=== PATIENT | male | born 1970 | race Caucasian/White ===

== ENCOUNTER 2017-01-07 07:10 | Emergency (ER) | payer MEDICAID ==
[~2017-01-07] VITALS: Ht 170.2 cm; Wt 89.3 kg
[~2017-01-07 07:10] MED LIST: CIPR7.5D4 RIGHT EAR
[2017-01-07 07:11] VITALS: Ht 170.2 cm; Wt 89.3 kg
[2017-01-07] MEDS ORDERED: SLF10OP15 BOTH EYES (07:46)
--- NOTE | 2017-01-07 07:54 | ERD ---
ER Documentation Chief Complaint Date/Time DATE: 01/07/17 TIME: 07:48 Chief Complaint il eenate redness x 2 days HPI This 46-year-old male who presents the emergency department today complaining of redness in both of his eyes for the past 2 days. States he has used tetrahydrozoline in his eyes. 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 Denies any eye pain, headache, blurred vision, vision changes, itching or purulent drainage ROS All systems reviewed and are negative except as per history of present illness. Medications Home Meds Active Scripts Sulfacetamide Sodium* (Sulfacetamide Sodium*) 10%-15 Ml Opht Drops, 1 DROP BOTH EYES Q2H for 7 Days, EA Prov:CALLIE MATHEWS PA-C 01/07/17 Ciprofloxacin Hcl/Dexameth (Ciprodex Otic Suspension) 7.5 Ml Drops.susp, 4 DROP RIGHT EAR BID for 7 Days, EA Prov:ALY GUPTA PA-C 10/24/15 Reported Medications [None] No Conflict Check 06/19/12 Allergies Allergies: Coded Allergies: No Known Drug Allergies (Verified Allergy, Unknown, 01/07/17) PMhx/Soc Medical and Surgical Hx: pt denies Medical Hx, pt denies Surgical Hx History of Surgery: No Anesthesia Reaction: No Hx Neurological Disorder: No Hx Respiratory Disorders: No Hx Cardiac Disorders: No Hx Psychiatric Problems: No Hx Miscellaneous Medical Probl: No Hx Alcohol Use: No Hx Substance Use: No Hx Tobacco Use: No Physical Exam Vitals Vital Signs Date Time Temp Pulse Resp B/P Pulse Ox O2 Delivery O2 Flow Rate FiO2 01/07/17 07:11 98.4 80 18 135/81 99 Physical Exam Const: No acute distress Head: Atraumatic Eyes: Bilateral conjunctival erythema and scleral erythema with evidence of pterygium bilaterally. No purulent drainage. ENT: Normal External Ears, Nose and Mouth. Neck: Full range of motion..~ No meningismus. Resp: Clear to auscultation bilaterally Cardio: Regular rate and rhythm, no murmurs Skin: No petechiae or rashes Neur: Awake and alert Psych: Normal Mood and Affect Procedures/MDM This is a 38-year-old male who presents to the emergency department today for bilateral eye redness for the past 2 days. 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 I have explained this to him. Patient denied any pain however I did obtain a visual acuity Right eye 20/13 Left eye 20/20 Bilateral 2013 I also check patient's ocular pressure with a Alfonzo-Pen Right eye pressures were between 16 and 18 on repeated attempts Left eye pressures were between 14 and 18 on repeated attempts Patient symptoms at the site consistent with bilateral eye redness possibly due to viral versus bacterial versus allergic conjunctivitis. Low suspicion for foreign body however patient was given a prescription for sulfacetamide. Low suspicion for hyphema, globe rupture, acute narrow angle glaucoma, orbital or preseptal cellulitis. Patient is afebrile and otherwise well-appearing. Patient was given a referral information for [facility]. At this time the patient is stable for discharge and outpatient management. Patient should follow up with their PCP in the next 1-2 days. They may return to the emergency department sooner for any persistent or worsening of symptoms. Patient understood and agreed with the plan. Discussed the patient with Jenny and he is in agreement with the plan. Departure Diagnosis: Primary Impression: Eye problem Condition: Fair Patient Instructions: Understanding Red Eye: Causes, Pterygium Referrals: [facility]) Usted se malone hecho un examen mdico de control que le indica que no est en edgardo condicin que requiera tratamiento urgente en el Departamento de Emergencia. Un estudio ms profundo y el tratamiento de garcia condicin pueden esperar sin ningn riesgo hasta que usted sea atendida/o en el consultorio de garcia mdico o edgardo cl jie. Es responsabilidad suya arreglar egdardo jaida para el seguimiento del giuliana. MANEJO DE CONDICIONES NO URGENTES EN EL FUTURO 1) Si usted tiene un mdico de atencin primaria: Usted debera llamar a garcia mdico de atencin primaria antes de venir al departamento de emergencia. Despus de las horas de consultorio, garcia doctor o garcia asociado/a est disponible por telfono. El mdico o enfermero de orin en el servicio telefnico puede asesorarle por nima medio para atender el problema, o giuliana contrario se puede programar edgardo jaida. 2) Si usted no tiene un mdico de atencin primaria: Llame al mdico o clnica de referencia que aparece abajo sachin las horas de consultorio para hacer edgardo jaida para que le vean. CLINICAS: [facility] [phone] [facility] [phone] [facility] [phone] [place] [address] [phone] [facility] [phone] [address] [facility]. [phone] [facility] Hours: Mon - Fri 9:00 AM - 5:00 PM Additional Instructions: Llame al doctor MAANA y antonino edgardo JAIDA PARA DENTRO DE 1-2 FLOEWRS.Dgale a la secretaria que nosotros le instruimos hacer esta jaida.Avise o llame si garcia condicin se empeora antes de la jaida. Regresa aqui si peor o no mejor. Use protective eyewear and sunglasses Use medication as prescribed Make an appointment with [facility] CALLIE MATHEWS PA-C Jan 07, 2017 07:54
== END 2017-01-07 07:50 | disposition home or self-care (01) ==
LOC: FTE 07:10
DX: H57.8 Other specified disorders of eye and adnexa (principal)
CPT/HCPCS: 99283

== ENCOUNTER 2018-03-12 19:09 | Emergency (ER) | END 2018-03-12 23:42 | disposition home or self-care (01) ==

== ENCOUNTER 2018-11-21 15:52 | Emergency (ER) | payer MEDICAID ==
[~2018-11-21] VITALS: Ht 167.6 cm; Wt 78.2 kg
[~2018-11-21 15:52] MED LIST changes: -CIPR7.5D4 RIGHT EAR; +IBUP-1542 PO
[2018-11-21 15:56] VITALS: Ht 167.6 cm; Wt 78.2 kg
[2018-11-21 20:33] VITALS: BP 135/88; PULSE 66; RESP 16
--- NOTE | 2018-11-22 13:08 | ERD ---
ER Documentation Chief Complaint Chief Complaint BUMP ON BACK X 1 DAY HPI Patient is a Citizen Of [place] speaking 48 year old male who presents to the ED with complaints of a bump on his left lateral trunk. 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 He reports a dull associated pain, worse when twisting to the left or left. Denies any known trauma. Denies an itchiness, rash or any other symptoms. Denies any history of same. ROS All systems reviewed and are negative except as per history of present illness. Medications Home Meds Active Scripts Ibuprofen* (Motrin*) 600 Mg Tab, 600 MG PO Q6H PRN for PAIN AND OR ELEVATED TEM P, #30 TAB Prov:JOHN VOGEL MD 03/12/18 Allergies Allergies: Coded Allergies: No Known Drug Allergies (Verified Allergy, Unknown, 03/12/18) PMhx/Soc Medical and Surgical Hx: pt denies Medical Hx, pt denies Surgical Hx History of Surgery: No Anesthesia Reaction: No Hx Neurological Disorder: No Hx Respiratory Disorders: No Hx Cardiac Disorders: No Hx Psychiatric Problems: No Hx Miscellaneous Medical Probl: No Hx Alcohol Use: No Hx Substance Use: No Hx Tobacco Use: No Smoking Status: Never smoker FmHx Family History: No diabetes Physical Exam Vitals Vital Signs Date Temp Pulse Resp B/P (MAP) Pulse Ox O2 O2 Flow FiO2 Time Delivery Rate 11/21/18 98.5 66 16 135/88 96 Room Air 20:33 (104) 11/21/18 98.0 71 18 167/97 98 15:56 (120) Physical Exam Const: No acute distress Head: Atraumatic Neck: Full range of motion. No meningismus. Skin: No petechiae or rashes Back: + Palpable 3 cm round nodule to left lateral mid trunk, nonmobile Ext: No cyanosis, or edema Neur: Awake and alert Psych: Normal Mood and Affect Procedures/MDM EMERGENT DIAGNOSTIC WORKUP Imaging as interpreted by the radiologist: PROCEDURE: Ultrasound of the soft tissues of the left lateral chest/abdomen CLINICAL INDICATION: Palpable mass TECHNIQUE: Real time imaging of the left lateral chest and abdomen was performed in the area of the palpable abnormality. COMPARISON: None FINDINGS: Real time imaging of the left lateral chest and abdomen was performed in the are a of the palpable abnormality. No cystic or solid masses are identified. No fluid collections are identified. IMPRESSION: No sonographic abnormalities are identified in the area of the palpable abnormality in the left lateral chest and abdomen. If there is continued clinical concern for abnormality, a CT or MRI could be performed. RPTAT:AAJJ Physician Rubén Date Time Electronically viewed and signed by Freddy Cunningham Physician on 11/21/2018 19:53 MEDICAL DECISION MAKING: Patient is an otherwise healthy 48 year old male who presents to the ED with complaints of a bump to his left lateral trunk. Physical exam is consistent with a lipoma. Ultrasound was inconclusive, further imaging was not obtained. Discussed with patient this is a likely a benign nodule that does not require emergent workup. I recommended he see his primary care physician for a referral to general surgery if lipoma gets any bigger or causes more pain. Strict return precaution given. DISPOSITION PLAN: We discussed follow up with the patient's primary care doctor within 24 to 48 hours. A list of community clinics have been referred to those who have not yet established care with a PCP. Patient counseled regarding my diagnostic impression and care plan. Prior to discharge all questions answered. Pt agrees with treatment plan and understands strict return precautions. Precautionary instructions provided including instructions to return to the ER if not improving or for any worsening or changing symptoms or concerns. Prior to discharge, patients vital signs have been reviewed. Patient's blood pressure was elevated (>120/80) but appears stable without evidence of hypertension emergency or urgency. The patient was counseled about the risks of hypertension and urged to pursue outpatient monitoring and therapy within a week with their primary care physician SPECIALIST FOLLOW UP RECOMMENDED: General Surgery Departure Diagnosis: Primary Impression: Lipoma Condition: Stable Patient Instructions: Lipoma Referrals: COMMUNITY CLINICS YOU HAVE RECEIVED A MEDICAL SCREENING EXAM AND THE RESULTS INDICATE THAT YOU DO NOT HAVE A CONDITION THAT REQUIRES URGENT TREATMENT IN THE EMERGENCY DEPARTMENT. FURTHER EVALUATION AND TREATMENT OF YOUR CONDITION CAN WAIT UNTIL YOU ARE SEEN IN YOUR DOCTORS OFFICE WITHIN THE NEXT 1-2 DAYS. IT IS YOUR RESPONSIBILITY TO MAKE AN APPOINTMENT FOR FOLOW-UP CARE. IF YOU HAVE A PRIMARY DOCTOR --you should call your primary doctor and schedule an appointment IF YOU DO NOT HAVE A PRIMARY DOCTOR YOU CAN CALL OUR PHYSICIAN REFERRAL HOTLINE AT IF YOU CAN NOT AFFORD TO SEE A PHYSICIAN YOU CAN CHOSE FROM THE FOLLOWING [facility] [address] [facility] [address] [facility]. [facility] [phone] [facility] [address] [facility] [facility] [address] [facility] [facility]. [address] Additional Instructions: thank you very much for allowing us to participate in your care. Your health and safety is our top priority at [facility]. Call your primary care doctor TOMORROW for an appointment during the next 2-4 days and bring all the information and medications prescribed. If the symptoms get worse and your provider is unavailable, return to the Emergency Department immediately. ADAMARIS CATSILLO PA-C Nov 22, 2018 13:02
== END 2018-11-21 20:34 | disposition home or self-care (01) ==
LOC: FTE 15:52
DX: D17.1 Benign lipomatous neoplasm of skin and subcutaneous tissue of trunk (principal)
CPT/HCPCS: 76536; Z7502

== ENCOUNTER 2018-12-22 22:07 | Emergency (ER) | payer MEDICAID ==
[~2018-12-22] VITALS: Ht 170.2 cm; Wt 79.3 kg
[2018-12-22 22:24] VITALS: Ht 170.2 cm; Wt 79.3 kg
[2018-12-23] MEDS ORDERED: ONDANSETRON 4 MG INJ IV STA (01:22)
[2018-12-23] MEDS ORDERED: morphine 4 MG/ML VIAL IV STA (01:22)
[2018-12-23] MEDS ORDERED: SOD CHLORIDE 0.9% 500 ML IV STA (01:22)
[2018-12-23] MEDS ORDERED: TRAM50TA2 PO (03:18)
[2018-12-23 03:21] VITALS: BP 133/86; PULSE 77; RESP 21
--- NOTE | 2019-01-11 04:00 | ERD ---
ER Documentation Chief Complaint Chief Complaint lymphoma hx flank pain radiating to L groin HPI This is a 48-year-old male with history of lymphoma was a flank pain radiating to his left groin. He says pain is mild to moderate intensity no exacerbating alleviating factors started about 36 hours ago has been getting progressively worse but is colicky in nature. No fevers no chills. No other current complaints. ROS All systems reviewed and are negative except as per history of present illness. Medications Home Meds Active Scripts Tramadol HCl (Tramadol HCl) 50 Mg Tablet, 50 MG PO Q4 PRN for PAIN, #20 TAB Prov:CHARMAINE COLLINS 12/23/18 Ibuprofen* (Motrin*) 600 Mg Tab, 600 MG PO Q6H PRN for PAIN AND OR ELEVATED TEMP, #30 TAB Prov:JOHN VOGEL MD 03/12/18 Allergies Allergies: Coded Allergies: No Known Drug Allergies (Unverified Allergy, Unknown, 12/23/18) PMhx/Soc History of Surgery: No Anesthesia Reaction: No Hx Neurological Disorder: No Hx Respiratory Disorders: No Hx Cardiac Disorders: No Hx Psychiatric Problems: No Hx Miscellaneous Medical Probl: Yes (LIPOMA) Hx Alcohol Use: No Hx Substance Use: No Hx Tobacco Use: No Smoking Status: Never smoker Physical Exam Physical Exam Const: No acute distress Head: Atraumatic Eyes: Normal Conjunctiva ENT: Normal External Ears, Nose and Mouth. Neck: Full range of motion. No meningismus. Resp: Clear to auscultation bilaterally Cardio: Regular rate and rhythm, no murmurs Abd: Soft, non tender, non distended. Normal bowel sounds Skin: No petechiae or rashes Back: No midline or flank tenderness Ext: No cyanosis, or edema Neur: Awake and alert Psych: Normal Mood and Affect Results 24 hrs Laboratory Tests Test 12/23/18 01:27 12/23/18 01:33 Urine Color YELLOW Urine Clarity CLEAR Urine pH 6.0 Urine Specific Crewe 1.009 Urine Ketones NEGATIVE mg/dL Urine Nitrite NEGATIVE mg/dL Urine Bilirubin NEGATIVE mg/dL Urine Urobilinogen NEGATIVE mg/dL Urine Leukocyte Esterase NEGATIVE Stef/ul Urine Hemoglobin NEGATIVE mg/dL Urine Glucose NEGATIVE mg/dL Urine Total Protein NEGATIVE mg/dl White Blood Count 10.3 10^3/ul Red Blood Count 5.39 10^6/ul Hemoglobin 16.0 g/dl Hematocrit 48.8 % Mean Corpuscular Volume 90.5 fl Mean Corpuscular Hemoglobin 29.7 pg Mean Corpuscular Hemoglobin Concent 32.8 g/dl Red Cell Distribution Width 13.2 % Platelet Count 205 10^3/UL Mean Platelet Volume 10.4 fl Immature Granulocytes % 0.400 % Neutrophils % 52.9 % Lymphocytes % 36.5 % Monocytes % 6.7 % Eosinophils % 2.6 % Basophils % 0.9 % Nucleated Red Blood Cells % 0.0 /100WBC Immature Granulocytes # 0.040 10^3/ul Neutrophils # 5.4 10^3/ul Lymphocytes # 3.7 10^3/ul Monocytes # 0.7 10^3/ul Eosinophils # 0.3 10^3/ul Basophils # 0.1 10^3/ul Nucleated Red Blood Cells # 0.0 10^3/ul Sodium Level 142 mmol/L Potassium Level 4.2 mmol/L Chloride Level 104 mmol/L Carbon Dioxide Level 27 mmol/L Anion Gap 11 Blood Urea Nitrogen 11 mg/dl Creatinine 0.69 mg/dl Est Glomerular Filtrat Rate mL/min > 60 mL/min Glucose Level 114 mg/dl Calcium Level 9.6 mg/dl Total Bilirubin 0.4 mg/dl Direct Bilirubin 0.00 mg/dl Indirect Bilirubin 0.4 mg/dl Aspartate Amino Transf (AST/SGOT) 28 IU/L Alanine Aminotransferase (ALT/SGPT) 26 IU/L Alkaline Phosphatase 92 IU/L Total Protein 8.0 g/dl Albumin 4.4 g/dl Globulin 3.60 g/dl Albumin/Globulin Ratio 1.22 Lipase 30 U/L Current Medications Medications Dose Sig/Maninder Start Time Status Last (Trade) Ordered Route PRN Stop Time Admin Dose Reason Admin Sodium 500 ml @ Q1H STAT 12/23/18 DC 12/23/18 Chloride 500 mls/hr IV 01:22 01:39 12/23/18 02:21 Morphine 4 mg ONCE STAT 12/23/18 DC 12/23/18 Sulfate IV 01:22 01:39 (morphine) 12/23/18 01:23 Ondansetron 4 mg ONCE STAT 12/23/18 DC 12/23/18 HCl (Zofran IV 01:22 01:39 Inj) 12/23/18 01:23 Procedures/MDM Medical decision making: This 48-year-old male with flank pain. At this point pain is resolved. Stable for outpatient management. No evidence of surgical abdomen. Patient's gastrointestinal symptoms have stabilized while in the department. No evidence of severe dehydration, sepsis, or surgical abdomen. Extensive discussion with family and patient that occult disease cannot be ruled out. 8 hour recheck for repeat abdominal exam is planned. Departure Diagnosis: Primary Impression: Flank pain Additional Impression: Lipoma Lipoma location: unspecified Qualified Codes: D17.9 - Benign lipomatous neoplasm, unspecified Condition: Stable Patient Instructions: CHARMAINE Evans Jan 11, 2019 03:59
== END 2018-12-23 03:22 | disposition home or self-care (01) ==
LOC: E/R 22:07
DX: D17.9 Benign lipomatous neoplasm, unspecified (principal)
CPT/HCPCS: 74176; 80053; 81003; 83690; 85025; J2270; J2405; J7040; Z7610; 36415; 96374; 96375

== ENCOUNTER 2019-04-02 17:03 | Emergency (ER) | payer MEDICAID ==
[~2019-04-02] VITALS: Ht 170.2 cm; Wt 77.9 kg
[~2019-04-02 17:03] MED LIST changes: +TRAM50TA2 PO
[2019-04-02 17:22] VITALS: BP 162/79; PULSE 74; RESP 16; Ht 170.2 cm; Wt 77.9 kg
[2019-04-02] MEDS ORDERED: IBUP-1542 PO (19:13)
[2019-04-02] MEDS ORDERED: NPH10OT RIGHT EAR (19:13)
--- NOTE | 2019-04-02 19:19 | ERD ---
ER Documentation Chief Complaint Chief Complaint pt reports discharge from r ear x 1 day HPI 48-year-old male presents with discharge from the right ear for last 2 days. Denies cough or congestion. Denies any history of swimming. Denies any fevers, chest pain, shortness of breath, additional symptoms. ROS All systems reviewed and are negative except as per history of present illness. Medications Home Meds Active Scripts Ibuprofen* (Motrin*) 600 Mg Tab, 600 MG PO Q6, #20 TAB Prov:MILTON DOMINGUEZ MD 04/02/19 Neomycin/Polymyxin/Hydrocort* (Cortisporin* Otic) 10 Ml Susp, 4 DROP RIGHT EAR QID for 7 Days, EA Prov:MILTON DOMINGUEZ MD 04/02/19 Tramadol HCl (Tramadol HCl) 50 Mg Tablet, 50 MG PO Q4 PRN for PAIN, #20 TAB Prov:CHARMAINE COLLINS 12/23/18 Ibuprofen* (Motrin*) 600 Mg Tab, 600 MG PO Q6H PRN for PAIN AND OR ELEVATED TE MP, #30 TAB Prov:JOHN VOGEL MD 03/12/18 Allergies Allergies: Coded Allergies: No Known Drug Allergies (Unverified Allergy, Unknown, 12/23/18) PMhx/Soc History of Surgery: No Anesthesia Reaction: No Hx Neurological Disorder: No Hx Respiratory Disorders: No Hx Cardiac Disorders: No Hx Psychiatric Problems: No Hx Miscellaneous Medical Probl: Yes (LIPOMA) Hx Alcohol Use: No Hx Substance Use: No Hx Tobacco Use: No Smoking Status: Never smoker FmHx Family History: No diabetes, No coronary disease, No other Physical Exam Vitals Vital Signs Date Temp Pulse Resp B/P (MAP) Pulse Ox O2 O2 Flow FiO2 Time Delivery Rate 04/02/19 98.6 74 16 162/79 98 17:22 (106) Physical Exam Const: No acute distress Head: Atraumatic Eyes: Normal Conjunctiva ENT: Normal External Ears, Nose and Mouth. Decreased diameter of the right external auditory canal with discharge. TM grossly normal visible through the swelling of the canal. No mastoid tenderness or external erythema or induration. Neck: Full range of motion. No meningismus. Resp: Clear to auscultation bilaterally Cardio: Regular rate and rhythm, no murmurs Abd: Soft, non tender, non distended. Normal bowel sounds Skin: No petechiae or rashes Back: No midline or flank tenderness Ext: No cyanosis, or edema Neur: Awake and alert Psych: Normal Mood and Affect Procedures/MDM Patient presents with signs and symptoms right otitis externa without signs of malignant otitis externa, mastoiditis, additional concerning signs or symptoms. The will treat with Cortisporin, ibuprofen, recommendations for primary care follow-up and return precautions. The patient was stable with no new complaints during the ER course. Clinically, there is no current evidence to suggest meningitis, sepsis, acute abdomen, pneumonia, stroke, acute coronary syndrome, pulmonary embolism, aortic dissection or any other emergent condition appearing to require further evaluation or hospitalization. Patient counseled regarding my diagnostic impression and care plan. Prior to discharge all questions answered. Pt agrees with treatment plan and understands strict return precautions. Pt is instructed to follow up with primary care provider within 24- 48 hours. Precautionary instructions provided including instructions to return to the ER if not improving or for any worsening or changing symptoms or concerns. Disclaimer: Inadvertent spelling and grammatical errors are likely due to EHR/dictation software use and do not reflect on the overall quality of patient care. Also, please note that the electronic time recorded on this note does not necessarily reflect the actual time of the patient encounter. Departure Diagnosis: Primary Impression: Right ear pain Condition: Stable Patient Instructions: External Ear Infection (Adult) Referrals: NO PRIMARY,CARE PHYSICIAN (PCP) Additional Instructions: Examines normal hoy. Cheque otro vez con garcia doctor primario en el proximo hopkins or regresa para mas o nueva simptomas. MILTON DOMINGUEZ MD Apr 02, 2019 19:19
== END 2019-04-02 19:51 | disposition home or self-care (01) ==
LOC: FTE 17:03
DX: H92.01 Otalgia, right ear (principal)
CPT/HCPCS: 99283